=== PATIENT | female | born 1935 ===

== ENCOUNTER 2018-06-08 09:07 | Emergency (ER) | payer OTHER ==
[~2018-06-08] VITALS: Ht 142.2 cm; Wt 40.8 kg
== END 2018-06-08 12:21 | disposition home or self-care (01) ==
LOC: ER 09:07
DX: S90.571A Other superficial bite of ankle, right ankle, initial encounter (principal); W55.01XA Bitten by cat, initial encounter; Y93.89 Activity, other specified; Y92.098 Other place in other non-institutional residence as the place of occurrence of the external cause; Y99.8 Other external cause status